=== PATIENT | female | born 1975 | race Asian ===

== ENCOUNTER 2024-01-26 07:00 | Outpatient (CLI) | payer BC ==
--- NOTE | 2024-01-26 10:03 | XRAY Report ---
PROCEDURE: Toe(s) 2+V LT INDICATIONS: CONTUSION OF GREAT TOE OF LEFT FOOT TECHNIQUE: 3 views of the first and second toe(s) acquired. COMPARISON: None. FINDINGS: Bones: No fractures or dislocations. No suspicious bony lesions. Soft tissues: No suspicious soft tissue densities. IMPRESSION: No acute bony abnormality. Reviewed by: Catrachito Mora MD on 01/26/2024 10:02 AM PDT Approved by: Catrachito Mora MD on 01/26/2024 10:02 AM PDT Station ID: [id number]
== END 2024-01-26 23:59 | disposition home or self-care (01) ==
LOC: DI.S 07:00
PROVIDERS: ATTEND Physician Assistant Medical
DX: S90.112A Contusion of left great toe without damage to nail, initial encounter (principal); S90.122A Contusion of left lesser toe(s) without damage to nail, initial encounter
CPT/HCPCS: 73660

== ENCOUNTER 2024-03-10 12:43 | Emergency (ER) | payer BC ==
[2024-03-10 13:44] LABS: BASOPHILS % (AUTO) 0.6 %; EOSINOPHILS # (AUTO) 0.1 10^3/uL (0.0-0.7); EOSINOPHILS % (AUTO) 2.1 %; HCT - HEMATOCRIT 40.9 % (37.0-47.0); HGB - HEMOGLOBIN 13.6 g/dL (12.0-16.0); LYMPHOCYTES # (AUTO) 1.4 10^3/uL (1.5-3.5); LYMPHOCYTES % (AUTO) 23.1 %; MEAN CORPUSCULAR HEMOGLOBIN 30.2 pg (27.0-31.0); MEAN CORPUSCULAR HGB CONC 33.3 g/dL (32.0-36.0); MEAN CORPUSCULAR VOLUME 90.9 fL (81.0-99.0); MEAN PLATELET VOLUME 9.1 fL (7.9-10.8); MONOCYTES # (AUTO) 0.3 10^3/uL (0.0-1.0); MONOCYTES % (AUTO) 5.5 %; NEUTROPHILS # (AUTO) 4.3 10^3/uL (1.5-6.6); NEUTROPHILS % (AUTO) 68.5 %; PLT - PLATELET COUNT 324 10^3/uL (130-450); RED CELL DISTRIBUTION WIDTH 11.8 % (12.0-15.0); WHITE BLOOD COUNT 6.2 x10^3/uL (4.8-10.8)
[2024-03-10 14:03] LABS: ALBUMIN 4.5 g/dL (3.2-5.5); ALBUMIN/GLOBULIN RATIO 1.7 (1.0-2.2); ALKALINE PHOSPHATASE 34 IU/L (42-121); ALT ALANINE AMINOTRANSFERASE 10 IU/L (10-60); AST ASPARTATE AMINOTRANSFERASE 16 IU/L (10-42); BILIRUBIN,TOTAL 0.4 mg/dL (0.2-1.0); BUN - BLOOD UREA NITROGEN 15 mg/dL (6-20); CALCIUM 9.3 mg/dL (8.5-10.3); CARBON DIOXIDE - CO2 27 mmol/L (21-32); CHLORIDE 104 mmol/L (101-111); CREATININE 0.6 mg/dL (0.6-1.3); GFR - MDRD 106 (>89); GLUCOSE 92 mg/dL (74-104); LIPASE 54 U/L (11-82); SODIUM 136 mmol/L (135-145); TOTAL PROTEIN 7.2 g/dL (6.4-8.9)
[2024-03-10 14:05] LABS: TROPONIN I HIGH SENSITIVITY < 2.3 ng/L (2.3-14.8)
--- NOTE | 2024-03-10 14:24 | XRAY Report ---
PROCEDURE: Chest 1V INDICATIONS: Chest pain TECHNIQUE: One view of the chest was acquired. COMPARISON: None. FINDINGS: Surgical changes and devices: None. Lungs and pleura: No pleural effusions or pneumothorax. Lungs are clear. Mediastinum: Mediastinal contours appear normal. Heart size is normal. Bones and chest wall: No suspicious bony lesions. Overlying soft tissues appear unremarkable. IMPRESSION: No acute cardiopulmonary process. Reviewed by: Catrachito Mora MD on 03/10/2024 2:22 PM PDT Approved by: Catrachito Mora MD on 03/10/2024 2:22 PM PDT Station ID: [id number]
--- NOTE | 2024-03-10 14:42 | ED Physician Documentation ---
PD HPI CHEST PAIN - Stated complaint Stated Complaint: SOA,CHEST PX,LT ARM PX - Chief complaint Chief Complaint: Cardiac - Additional information Additional information: 48-year-old female with no pertinent past medical history presents emergency department for left-sided chest pain and left arm tingling. Patient says that she has had this happen multiple times in the past Where she feels like she wakes up on her arm weird or wrong and it is numb and tingly and she feels the chest pain deep into her chest but more towards her back. She has no family history of cardiac disease and she has no history of cardiac disease. She is currently perimenopausal and takes daily progesterone for hormone supplements. She does have a primary care provider. Her main concern is that she told her the symptoms that she was experiencing and her wanted her to come to the emergency department for evaluation. She denies any shortness of breath no chest pain no vision changes. PD PAST MEDICAL HISTORY - Past Medical History Past Medical History: No Cardiovascular: None Respiratory: None Neuro: None Endocrine/Autoimmune: None GI: None RECORDS ASSISTANT: None : None HEENT: None Psych: None Musculoskeletal: None Derm: None - Past Surgical History Past Surgical History: No - Present Medications Home Medications: Ambulatory Orders Medication Instructions Recorded Confirmed Progesterone, Micronized 100 mg PO DAILY 03/10/24 [Prometrium] - Allergies Allergies/Adverse Reactions: Allergies Allergy/AdvReac Type Severity Reaction Status Date / Time No Known Drug Allergies Allergy Verified 03/10/24 13:00 - Social History Does the pt smoke?: No Smoking Status: Never smoker Does the pt drink ETOH?: No Does the pt have substance abuse?: No - Immunizations Immunizations are current?: Yes - POLST Patient has POLST: No PD ED PE NORMAL - Vitals Vital signs reviewed: Yes - General General: Alert and oriented X 3, No acute distress, Well developed/nourished - HEENT HEENT: Atraumatic, PERRL - Cardiac Cardiac: RRR, No murmur, No gallop, Strong equal pulses - Respiratory Respiratory: No respiratory distress, Clear bilaterally - Abdomen Abdomen: Normal bowel sounds, Soft, Non tender, Non distended, No organomegaly - Derm Derm: Normal color, Warm and dry, No rash - Extremities Extremities: No edema, No calf tenderness / cord - Psych Psych: Normal mood Results - Vitals Vitals: Vital Signs - 24 hr 03/10/24 03/10/24 03/10/24 12:48 14:35 15:02 Temperature 36.9 C 36.5 C Heart Rate 71 71 63 Respiratory 17 16 16 Rate Blood Pressure 121/73 119/70 119/70 O2 Saturation 98 100 100 Oxygen O2 Source Room air - Labs Labs: Laboratory Tests 03/10/24 03/10/24 13:40 13:40 WBC 6.2 RBC 4.50 Hgb 13.6 Hct 40.9 MCV 90.9 MCH 30.2 MCHC 33.3 RDW 11.8 L Plt Count 324 MPV 9.1 Neut # (Auto) 4.3 Lymph # (Auto) 1.4 L Sandoval # (Auto) 0.3 Eos # (Auto) 0.1 Baso # (Auto) 0.0 Absolute Nucleated RBC 0.00 Nucleated RBC % 0.0 Sodium 136 Potassium 4.0 Chloride 104 Carbon Dioxide 27 Anion Gap 5.0 L BUN 15 Creatinine 0.6 Estimated GFR (MDRD) 106 Glucose 92 Calcium 9.3 Total Bilirubin 0.4 AST 16 ALT 10 Alkaline Phosphatase 34 L Troponin I High Sens < 2.3 L Total Protein 7.2 Albumin 4.5 Globulin 2.7 Albumin/Globulin Ratio 1.7 Lipase 54 - Rads (name of study) Chest x-ray Relevant Findings:: Final report received, EMP independent interpretation of test, Other (No acute cardiopulmonary process) PD Medical Decision Making - ED course ED course: 48-year-old female presents emergency department for brief resolved chest pain and chronic left arm numbness and tingling. Exam without evidence of volume overload so doubt heart failure. EKG without signs of active ischemia. Given the timing of pain to ER presentation, single troponin was complete so doubt NSTEMI. Presentation not consistent with acute PE (Wells low risk) ,pneumothorax (not visualized on chest xr), thoracic aortic dissection, pericarditis, tamponade, pneumonia (no infectious symptoms, clear chest xr), myocarditis (no recent illness, neg trop). HEART score:1 so plan to discharge patient for PCP follow-up. In regards to the left arm tingling patient has equal strength bilaterally and CMS intact strong left radial pulse. She is informed to follow- up outpatient about this chronic tingling sensation that she is experiencing for further evaluation and outpatient workup. Departure - Departure Disposition: 01 Home, Self Care Clinical Impression: Atypical chest pain Instructions: ED Chest Pain CORAL [facility] Comments: Thank you for trusting us with your care. We have completed labs as well as a chest x-ray and EKG and we are not seeing any acute abnormal findings that could indicate an acute heart attack. It is very important that you follow-up with your primary care provider for further evaluation of your left arm tingling and your atypical chest pain. Please come back to the ER if you are having any change in symptoms or any worsening symptoms. Forms: PCP List Discharge Date/Time: 03/10/24 15:02
[2024-03-10 14:43] VITALS: BP 119/70; O2SAT 100
== END 2024-03-10 15:02 | disposition home or self-care (01) ==
LOC: ED 12:43
DX: R07.89 Other chest pain (principal)
CPT/HCPCS: 36415; 80053; 83690; 84484; 85025; 93005; 99283; 99284